=== PATIENT | male | born 1995 | race African-American/Black ===

== ENCOUNTER 2020-01-08 13:06 | Emergency (ER) | payer OTHER ==
[~2020-01-08] VITALS: Ht 182.9 cm; Wt 89.4 kg
--- NOTE | 2020-01-08 13:35 | NUR ---
ED Nurse Note: Patient walked into ED c/o left-sided sharp, shooting pain, in lower left ribs when breathing, gets as bad as 8/10. Currently states pain is a 3/10. Denies shortness of breath. Patient states he has had this problem for years, but does not know what is causing it. Patient AxO x 4, no s/s of acute distress. Patient on the compliance monitor, bed in lowest position.
--- NOTE | 2020-01-08 13:45 | NUR ---
ED Nurse Note: Dr. Tee at bedside.
--- NOTE | 2020-01-08 13:53 | Emergency Room Report ---
History of Present Illness General Chief Complaint: Chest Pain Source: Patient Present Illness HPI Patient presents with many months to years of left-sided chest pain that is intermittent. Feels that the mid axillary line to more medial. It is worse at night. Usually lasts 5 minutes. He has tried Tylenol and ibuprofen. They do not seem to affected. Is an unusual feeling when he has it. Sometimes it is associated with nausea after eating. He was evaluated one time before when he was quite young. Does not remember what was done but he thinks that x-rays were done at that time. He denies fevers or chills. There is no productive cough. No sore throat. No rashes. No headache associated with this. Sometimes it also is associated with some exertion. Rarely smokes THC. No family history of heart disease, diabetes or hypertension. No fevers, chills, sore throat, chest pain, palpitations, nausea, vomiting, diarrhea, dysuria, abdominal pain, shortness of breath, joint pain, rashes, depression, anxiety, visual changes, dizziness, headache. COVID-19 risk:Travel to affect: No Has patient experienced hendrickson: No Allergies: Coded Allergies: Bumble Bee (Verified Allergy, Severe, 01/08/20) Patient History Social History: Reports: drug use - THC rare Social History Narrative Scan at [facility] Reviewed Nursing Documentation: PMH: Agreed; PSxH: Agreed Review of Systems All Other Systems: negative except mentioned in HPI Physical Exam Vital Signs Date Time Temp Pulse Resp B/P (MAP) Pulse Ox O2 Delivery O2 Flow Rate FiO2 01/08/20 13:26 98.2 80 16 102/65 (77) 95 Room Air Sp02 EP Interpretation: reviewed, normal General Appearance: well appearing, no apparent distress, GCS 15 Head: normocephalic Eyes: bilateral eye normal inspection, bilateral eye PERRL, bilateral eye EOMI ENT: moist mucus membranes Neck: supple Respiratory: chest non-tender, lungs clear, normal breath sounds Cardiovascular #1: regular rate, rhythm, no edema, no JVD, no murmur Cardiovascular #2: 2+ radial (R) Gastrointestinal: normal inspection, normal bowel sounds, non tender, no mass, non-distended Musculoskeletal: back normal, normal range of motion, gait/station normal Neurologic: alert, oriented x3, grossly normal Psychiatric: mood/affect normal Skin: no rash, warm/dry Medical Decision Making Diagnostic Impression: Primary Impression: Chest pain Qualified Codes: R07.9 - Chest pain, unspecified ER Course Patient presents with left-sided intermittent chest discomfort. Differential includes costochondritis, reflux, arrhythmia, idiopathic hypertrophic cardiomyopathy amongst others. Evaluation with EKG and chest x-ray. The patient has no symptoms at this time. The patient is placed on a case monitor. NSR with marked sinus arrhythmia. Minimal voltage criteria for left ventricle hypertrophy possibly normal variant. Chest x-ray normal. Patient with normal sinus rhythm on monitor 99% saturated which is normal. Discussed findings with patient and the need for outpatient follow-up. No medical emergency at this time. Patient stable for outpatient observation and treatment. EKG Diagnostic Results Rate: normal Rhythm: NSR ST Segments: no acute changes - Minimal criteria for left ventricular hypertrophy Rhythm Strip Diag. Results EP Interpretation: yes Rhythm: NSR, no PVC's, no ectopy Chest X-Ray Diagnostic Results Chest X-Ray Diagnostic Results : Chest X-Ray Ordered: Yes # of Views/Limited/Complete: 1 View Indication: Chest Pain EP Interpretation: Yes Interpretation: no consolidation, no effusion, no pneumothorax Impression: No acute disease Electronically Signed by: Electronically signed by Cruz Tee MD Last Vital Signs Date Time Temp Pulse Resp B/P (MAP) Pulse Ox O2 Delivery O2 Flow Rate FiO2 01/08/20 14:25 98.2 80 16 102/65 95 Room Air Status: unchanged Disposition: HOME, SELF-CARE Condition: Stable Cruz Tee MD Jan 08, 2020 13:53
[2020-01-08 14:00] VITALS: BP 102/65
--- NOTE | 2020-01-08 14:08 | NUR ---
ED Nurse Note: Xray at bedside.
--- NOTE | 2020-01-08 14:18 | NUR ---
ED Nurse Note: Dr. Tee at bedside.
[2020-01-08 14:25] VITALS: BP 102/65
--- NOTE | 2020-01-08 14:25 | NUR ---
ED Nurse Note: ER DISCHARGE NOTE: Patient is cleared to be discharged per Dr. Tee, pt is aox4, on room air, with stable vital signs. pt was given dc and prescription instructions, pt was able to verbalize understanding, pt id band and iv site removed without complications. pt is able to ambulate with steady gait. pt took all belongings.
--- NOTE | 2020-01-09 12:38 | Diagnostic Imaging Report ---
Indication: Chest pain Technique: One view of the chest Comparison: none Findings: Lungs and pleural spaces are clear. Heart size is normal. Impression: No acute process
== END 2020-01-08 14:25 | disposition home or self-care (01) ==
LOC: EMR 13:50
DX: R07.9 Chest pain, unspecified (principal); I49.9 Cardiac arrhythmia, unspecified
CPT/HCPCS: 71045; 93005; Z7502; 99283

== ENCOUNTER 2020-02-05 22:33 | Emergency (ER) | payer OTHER ==
[~2020-02-05] VITALS: Ht 175.3 cm; Wt 90.7 kg
[2020-02-05 22:54] VITALS: BP 130/67
--- NOTE | 2020-02-05 22:54 | NUR ---
ED Nurse Note: pt ambulated into ED from home CO headache, sore throat, congestion x 2 weeks. Pt aao x 4 vss. Awaiting ERMD at bedside
--- NOTE | 2020-02-05 23:00 | NUR ---
ED Nurse Note: ERMD at bedside, xray requested per ERMD
--- NOTE | 2020-02-05 23:05 | NUR ---
ED Nurse Note: xray at bedside
--- NOTE | 2020-02-05 23:06 | Emergency Room Report ---
History of Present Illness General Chief Complaint: Flu Like Symptoms Source: Patient Present Illness HPI 24-year-old male no reported past medical history presents with flulike symptoms for the past week. He reports cough congestion and sore throat and generalized malaise. No nausea vomiting or diarrhea. Tactile fevers reported. He denies any sick contacts or recent travel. He denies any shortness of breath. Allergies: Coded Allergies: Bumble Bee (Verified Allergy, Severe, 02/05/20) COVID-19 Screening Contact w/high risk pt: No Recent Travel to affected area: No Experienced COVID-19 symptoms?: Yes COVID-19 symptoms experienced: Cough, Runny Nose, Flu-Like Symptoms Patient History Reviewed Nursing Documentation: PMH: Agreed; PSxH: Agreed Nursing Documentation-PMH Past Medical History: No Stated History Review of Systems All Other Systems: negative except mentioned in HPI Physical Exam Vital Signs Date Time Temp Pulse Resp B/P (MAP) Pulse Ox O2 Delivery O2 Flow Rate FiO2 02/05/20 22:44 100.0 110 20 130/67 (88) 96 Room Air Sp02 EP Interpretation: reviewed, normal General Appearance: well appearing, no apparent distress Head: normocephalic, atraumatic Eyes: bilateral eye PERRL, bilateral eye EOMI ENT: hearing grossly normal, moist mucus membranes Neck: full range of motion, supple Respiratory: lungs clear, normal breath sounds, no rhonchi, no respiratory distress, no retraction, no wheezing Cardiovascular #1: normal peripheral pulses, regular rate, rhythm, no murmur Gastrointestinal: non tender, soft, non-distended, no guarding Neurologic: alert, oriented x3, no focal defects Skin: normal color, warm/dry Medical Decision Making ER Course Differential diagnosis included but not limited to URI, coronavirus, flulike symptom, seasonal allergy, pneumonia to name a few. On exam patient in no acute distress. Oxygen saturation 96%. Patient with a temperature of 100.1. Chest x-ray was ordered. Chest x-ray did not demonstrate any evidence of lobar pneumonia. Again patient not hypoxic in no distress. Will treat for suspected coronavirus with symptomatic treatment. I recommended home isolation. Patient did wish to get tested so I did refer him to the [facility] outpatient testing website. Patient otherwise nontoxic, no acute distress, stable for discharge with return precautions. Chest X-Ray Diagnostic Results Chest X-Ray Diagnostic Results : Chest X-Ray Ordered: Yes # of Views/Limited/Complete: 1 View Indication: Shortness of Breath EP Interpretation: Yes Interpretation: no consolidation, no effusion, no pneumothorax Impression: No acute disease Electronically Signed by: Adan Hahn MD Last Vital Signs Date Time Temp Pulse Resp B/P (MAP) Pulse Ox O2 Delivery O2 Flow Rate FiO2 02/05/20 22:44 100.0 110 20 130/67 (88) 96 Room Air Disposition: HOME, SELF-CARE Condition: Stable Scripts Acetaminophen* (ACETAMINOPHEN EXTRA STRENGTH*) 500 Mg Tablet 500 MG ORAL Q6H PRN for For Pain, #20 TAB Prov: Adan Hahn M.D. 02/05/20 Adan Hahn M.D. Feb 05, 2020 23:06
--- NOTE | 2020-02-05 23:35 | NUR ---
ED Nurse Note: ermd at bedside
[2020-02-05] MEDS ORDERED: ACETAMINOPHEN500 M3 ORAL (23:36)
[2020-02-05 23:41] VITALS: BP 130/67
--- NOTE | 2020-02-05 23:41 | NUR ---
ER DISCHARGE NOTE: Patient is cleared to be discharged home per ERMD, pt is aox4, on room air, with stable vital signs. pt was given dc and prescription instructions, pt was able to verbalize understanding, pt id band removed. pt is able to ambulate with steady gait. pt took all belongings.
--- NOTE | 2020-02-05 23:54 | Diagnostic Imaging Report ---
EXAM: XR Chest, 1 View CLINICAL HISTORY: COUGH TECHNIQUE: Frontal view of the chest. COMPARISON: 01/08/20 FINDINGS: Lungs: No significant abnormality. No consolidation. Pleural space: No significant abnormality. No pneumothorax. Heart: No significant abnormality. No cardiomegaly. Mediastinum: No significant abnormality. Bones/joints: No acute osseous abnormality. IMPRESSION: No acute cardiopulmonary process.
== END 2020-02-05 23:41 | disposition home or self-care (01) ==
LOC: EMR 22:45
DX: R50.9 Fever, unspecified (principal); R05 Cough; R09.89 Other specified symptoms and signs involving the circulatory and respiratory systems
CPT/HCPCS: 71045; Z7502; 99283